=== PATIENT | female | born 1985 | race Caucasian/White ===

== ENCOUNTER 2017-03-25 09:02 | Emergency (ER) | payer SELFPAY ==
[2017-03-25] MEDS ORDERED: OXYCODONE-ACETAMINOPHEN 5-325 MG TABLET PO ONE (09:53)
[2017-03-25] MEDS ORDERED: DOXYCYCLINE HYCLATE 100 MG TABLET PO ONE (09:53)
--- NOTE | 2017-03-25 10:00 | ER Document Report ---
ED Skin Rash/Insect Bite/Abscs - General Chief Complaint: Abscess Stated Complaint: POSSIBLE ABSCESS Time Seen by Provider: 03/25/17 09:46 Mode of Arrival: Ambulatory Information source: Patient Notes: Patient is a 31-year-old female who presents to the ER today with multiple bumps underneath both arms. Patient has never had this happen before. She denies any history of MRSA. She admits to feeling hot and cold but has not taken her temperature. She states that some of them have drained pus. TRAVEL OUTSIDE OF THE [place] IN LAST 30 DAYS: No - Related Data Allergies/Adverse Reactions: Penicillins Allergy (Verified 03/25/17 09:06) Past Medical History - General Information source: Patient - Social History Smoking Status: Current Every Day Smoker Frequency of alcohol use: None Drug Abuse: None Family History: Reviewed & Not Pertinent Patient has suicidal ideation: No Patient has homicidal ideation: No - Past Medical History Cardiac Medical History: Reports: Hx Hypertension Renal/ Medical History: Denies: Hx Peritoneal Dialysis Musculoskeltal Medical History: Reports Hx Arthritis Psychiatric Medical History: Reports: Hx Depression Past Surgical History: Reports: Hx Abdominal Surgery - Exploratory lap, Hx Section - 2, Hx Hysterectomy Review of Systems - Review of Systems Constitutional: See HPI EENT: No symptoms reported Cardiovascular: No symptoms reported Respiratory: No symptoms reported Gastrointestinal: No symptoms reported Genitourinary: No symptoms reported Female Genitourinary: No symptoms reported Musculoskeletal: No symptoms reported Skin: See HPI Hematologic/Lymphatic: No symptoms reported Neurological/Psychological: No symptoms reported Physical Exam - Vital signs Vitals: Temp Pulse Resp BP Pulse Ox 98.4 F 109 H 16 142/89 H 100 03/25/17 09:05 03/25/17 09:05 03/25/17 09:05 03/25/17 09:05 03/25/17 09:05 - Notes Notes: PHYSICAL EXAMINATION: GENERAL: Uncomfortable, but in no acute distress. HEAD: Atraumatic, normocephalic. EYES: Pupils equal round and reactive to light, extraocular movements intact, sclera anicteric, conjunctiva are normal. NECK: Normal range of motion, supple without lymphadenopathy LUNGS: CTAB and equal. No wheezes rales or rhonchi. HEART: Regular rate and rhythm without murmurs EXTREMITIES: Normal range of motion, no pitting edema. No cyanosis. NEUROLOGICAL: Cranial nerves grossly intact. Normal sensory/motor exams. PSYCH: Normal mood, normal affect. SKIN: Warm, Dry, normal turgor, multiple areas of erythema in both axillary areas, patient exquisitely tender to palpation throughout the entire axilla bilaterally, even to skin that is not erythematous, approximately 3-4 small, less than 1 cm, indurated areas without drainage or fluctuance Course - Re-evaluation Re-evalutation: 03/25/17 09:57 Patient is exquisitely tender and will not even let me palpate appropriately on exam. I will start her on doxycycline and give her pain medication and she would like to try this before "cutting them." - Vital Signs Vital signs: Temp Pulse Resp BP Pulse Ox 98.4 F 109 H 16 142/89 H 100 03/25/17 09:05 03/25/17 09:05 03/25/17 09:05 03/25/17 09:05 03/25/17 09:05 Discharge - Discharge Clinical Impression: Abscesses of both axillae Condition: Stable Disposition: HOME, SELF-CARE Additional Instructions: Return immediately for any new or worsening symptoms. Follow up with primary care provider, call tomorrow to make followup appointment. Prescriptions: Doxycycline Hyclate 100 mg PO BID #20 capsule Hydrocodone/Acetaminophen [[place] 5-325 mg Tablet] 1 tab PO Q4 PRN #10 tablet PRN Reason: Forms: Return to Work
[2017-03-25 10:11] VITALS: BP 139/80
== END 2017-03-25 10:11 | disposition home or self-care (01) ==
LOC: ER 09:02
DX: L02.412 Cutaneous abscess of left axilla (principal); L02.411 Cutaneous abscess of right axilla; F17.200 Nicotine dependence, unspecified, uncomplicated
CPT/HCPCS: 99282

== ENCOUNTER 2017-06-10 09:21 | Emergency (ER) | payer SELFPAY ==
--- NOTE | 2017-06-10 10:16 | ER Document Report ---
ED GI/ - General Mode of Arrival: Ambulatory Information source: Patient TRAVEL OUTSIDE OF THE [place] IN LAST 30 DAYS: No - HPI Patient complains to provider of: Abdominal pain Onset: Other - 3 weeks ago. Progressivley worse over the last 3 days. Location: Epigastric, RUQ Associated symptoms: Chills Exacerbated by: Supine <LAYO ZAMAN - Last Filed: 06/10/17 12:49> <EMELI BROWN - Last Filed: 06/10/17 19:29> - General Chief Complaint: Abdominal Pain Stated Complaint: VOMITING Notes: Patient is a 31 year old female presenting to the emergency department complaining of severe epigastric and RUQ abdominal pain onset 3 weeks ago. Patient states that the pain has progressively gotten worse over the last 3 days. Patient states that the pain is a sharp pain and "unbearable". Patient states the pain is exacerbated when supine. Patients associated symptoms include diaphoresis, vomiting which is described as "chewed up coffee grounds", fever, chills,cough and decreased fluid and food intake. Patient states that she was diagnosed with GERD 3 years ago in which she normally takes Prilosec. She states that Prilosec normally helps with her GERD symptoms. (LAYO ZAMAN) - Related Data Allergies/Adverse Reactions: Penicillins Allergy (Verified 06/10/17 09:23) Home Medications: Current Home Medications Citalopram Hydrobromide [Celexa 40 mg Tablet] 1 tab PO DAILY 06/10/17 [History] Gabapentin 300 mg PO TID 06/10/17 [History] Omeprazole Magnesium [Prilosec Otc] 20 mg PO DAILY 06/10/17 [History] Past Medical History - Social History Smoking Status: Current Every Day Smoker Chew tobacco use (# tins/day): No Frequency of alcohol use: Occasional Drug Abuse: None Family History: Reviewed & Not Pertinent Patient has suicidal ideation: No Patient has homicidal ideation: No - Past Medical History Cardiac Medical History: Reports: Hx Hypertension Musculoskeltal Medical History: Reports Hx Arthritis Psychiatric Medical History: Reports: Hx Depression Past Surgical History: Reports: Hx Abdominal Surgery - Exploratory lap, Hx Section - 2, Hx Hysterectomy <LAYO ZAMAN - Last Filed: 06/10/17 12:49> Review of Systems - Review of Systems Constitutional: See HPI, Chills, Diaphoresis, Fever EENT: No symptoms reported Cardiovascular: No symptoms reported Respiratory: No symptoms reported Gastrointestinal: See HPI, Abdominal pain, Nausea, Vomiting, Poor appetite, Poor fluid intake Genitourinary: No symptoms reported Female Genitourinary: No symptoms reported Musculoskeletal: No symptoms reported Skin: No symptoms reported Hematologic/Lymphatic: No symptoms reported Neurological/Psychological: No symptoms reported -: Yes All other systems reviewed and negative <JUNIELAYO - Last Filed: 06/10/17 12:49> Physical Exam <JUNIE,TAMNOREEN - Last Filed: 06/10/17 12:49> <FÉLIXERNESTOEMELI - Last Filed: 06/10/17 19:29> - Vital signs Vitals: Temp Pulse Resp BP Pulse Ox 98.2 F 111 H 20 145/104 H 100 06/10/17 09:23 06/10/17 09:23 06/10/17 09:23 06/10/17 09:23 06/10/17 09:23 - Notes Notes: GENERAL: Alert, interacts well. Appears uncomfortable. HEAD: Normocephalic, atraumatic. EYES: Pupils equal, round, and reactive to light. Extraocular movements intact. ENT: Oral mucosa moist, tongue midline. NECK: Full range of motion. Supple. Trachea midline. LUNGS: Clear to auscultation bilaterally, no wheezes, rales, or rhonchi. No respiratory distress. HEART: Regular rate and rhythm. No murmurs, gallops, or rubs. ABDOMEN: LUQ and epigastrium tender to palpation. Non-distended. Bowel sounds present in all 4 quadrants. EXTREMITIES: Moves all 4 extremities spontaneously. No edema, radial and dorsalis pedis pulses 2/4 bilaterally. No cyanosis. NEUROLOGICAL: Alert and oriented x3. Normal speech. Biceps and patellar DTRs 2 + bilaterally. PSYCH: Normal affect, normal mood. SKIN: Warm, dry, normal turgor. No rashes or lesions noted. RECTAL: No external hemorrhoids. Brown stool, no blood. (JUNIELAYO) Course - Laboratory Result Diagrams: 06/10/17 10:25 06/10/17 10:25 <JUNIESHERIFNOREEN - Last Filed: 06/10/17 12:49> - Laboratory Result Diagrams: 06/10/17 10:25 06/10/17 10:25 <EMELI BROWN - Last Filed: 06/10/17 19:29> - Re-evaluation Re-evalutation: 06/10/17 14:49 CBC unremarkable, CMP grossly unremarkable, lipase normal, abdominal ultrasound does not show any signs of biliary pathology, discussed with patient thi could represent continuing GERD or it could be a dyskinetic gallbladder and she will require a HIDA scan as an outpatient. Patient has been referred to surgery for further follow-up, started on Carafate in case this is GERD and discharged to home. Chest x-ray unremarkable. (EMELI BROWN) - Vital Signs Vital signs: Temp Pulse Resp BP Pulse Ox 98.2 F 81 16 122/79 100 06/10/17 09:23 06/10/17 15:38 06/10/17 15:38 06/10/17 15:38 06/10/17 15:38 - Laboratory Laboratory results interpreted by me: 06/10/17 06/10/17 10:25 10:25 Seg Neuts % (Manual) 24 L Lymphocytes % (Manual) 62 H Abs Neuts (Manual) 1.3 L Sodium 146.5 H BUN 6 L Discharge <LAYO ZAMAN - Last Filed: 06/10/17 12:49> <EMELI BROWN - Last Filed: 06/10/17 19:29> - Discharge Clinical Impression: Right upper quadrant abdominal pain of unknown etiology, Essential (primary) hypertension, Tobacco abuse, Tobacco abuse counseling GERD (gastroesophageal reflux disease) Qualifiers: Esophagitis presence: esophagitis presence not specified Qualified Code(s): K21.9 - Gastro-esophageal reflux disease without esophagitis Vomiting Qualifiers: Vomiting type: unspecified Vomiting Intractability: intractable Nausea presence : with nausea Qualified Code(s): R11.2 - Nausea with vomiting, unspecified Condition: Stable Disposition: HOME, SELF-CARE Additional Instructions: Drink plenty of fluids, return to a clear liquid diet and avoid fatty or greasy foods. Today we did not find any problem with your gallbladder, but you could have a gallbladder that is not squeezing well and you would need a HIDA scan. Please follow-up with either your primary care physician or a surgeon. They can order this. I have prescribed Zofran for nausea, Carafate to help soothe her stomach if some of this is heartburn, Zantac to take instead of the Prilosec to see if this works better for you. Please avoid alcohol, smoking, ibuprofen and other things known to trigger heartburn. Please return for vomiting blood, fevers, uncontrollable pain or any new or concerning symptoms. Prescriptions: Ondansetron [Zofran Odt 4 mg Tablet] 1 - 2 tab PO Q4H PRN #15 tab.rapdis PRN Reason: For Nausea/Vomiting Ranitidine HCl [Zantac 75 mg Tablet] 75 mg PO BID #30 tablet Sucralfate [Carafate 1 gm Tablet] 1 gm PO ACHS #40 tablet Forms: Smoking Cessation Education, Return to Work Scribe Attestation: 06/10/17 19:29 I personally performed the services described in the documentation, reviewed and edited the documentation which was dictated to the scribe in my presence, and it accurately records my words and actions. (EMELI BROWN) Scribe Documentation - Scribe Written by Hunter:: Hunter Garcia, 06/10/2017 12:52 acting as scribe for :: Mauricio <LAYO ZAMAN - Last Filed: 06/10/17 12:49>
[2017-06-10] MEDS ORDERED: NORMAL SALINE 1000 ML 1,000 ML IV ONE (10:38)
[2017-06-10] MEDS ORDERED: HYDROMORPHONE HCL INJ/PF 2 MG/ML AMPULE IV ONE (10:38)
[2017-06-10] MEDS ORDERED: ONDANSETRON HCL INJ/PF 4 MG/2 ML SDV IV ONE (10:38)
[2017-06-10 10:44] LABS: HEMATOCRIT 39.7 % (36.0-47.0); HEMOGLOBIN 13.6 g/dL (12.0-15.5); HGB HCT DIFFERENCE 1.1; MEAN CORPUSCULAR HEMOGLOBIN 31.8 pg (27.0-33.4); MEAN CORPUSCULAR HGB CONC 34.2 g/dL (32.0-36.0); MEAN CORPUSCULAR VOLUME 93 fl (80-97); RED BLOOD COUNT 4.27 10^6/uL (3.72-5.28); RED CELL DISTRIBUTION WIDTH 12.7 % (11.5-14.0); WHITE BLOOD COUNT 5.4 10^3/uL (4.0-10.5)
[2017-06-10 11:05] LABS: ALANINE AMINOTRANSFERASE 26 U/L (9-52); ALBUMIN 4.5 g/dL (3.5-5.0); ALKALINE PHOSPHATASE 82 U/L (38-126); ANION GAP 13 (5-19); ASPARTATE AMINO TRANSFERASE 25 U/L (14-36); BILIRUBIN,DIRECT 0.3 mg/dL (0.0-0.4); BILIRUBIN,TOTAL 0.4 mg/dL (0.2-1.3); BLOOD UREA NITROGEN 6 mg/dL (7-20); CALCIUM 9.8 mg/dL (8.4-10.2); CARBON DIOXIDE 28 mmol/L (22-30); CHLORIDE 106 mmol/L (98-107); CREATININE RESULT 0.88 mg/dL (0.52-1.25); GLUCOSE 88 mg/dL (75-110); LIPASE 80.3 U/L (23-300); POTASSIUM 4.2 mmol/L (3.6-5.0); SODIUM 146.5 mmol/L (137-145); TOTAL PROTEIN 7.8 g/dL (6.3-8.2)
[2017-06-10 11:10] LABS: BASOPHILS % (MANUAL) 0 % (0-2); EOSINOPHILS % (MANUAL) 1 % (0-6); LYMPHOCYTES % (MANUAL) 62 % (13-45); RBC MORPHOLOGY COMMENT NORMO-CYTIC/CHROMIC; TOTAL CELLS COUNTED 100; TOXIC GRANULATION SLIGHT; TOXIC VACUOLATION PRESENT
--- NOTE | 2017-06-10 11:17 | RADIOLOGY REPORT (SQ) ---
EXAM DESCRIPTION: CHEST PA/LAT COMPLETED DATE/TIME: 06/10/2017 11:06 am REASON FOR STUDY: chest pain, vomiting COMPARISON: 09/27/2008 EXAM PARAMETERS: NUMBER OF VIEWS: two views TECHNIQUE: Digital Frontal and Lateral radiographic views of the chest acquired. RADIATION DOSE: NA LIMITATIONS: none FINDINGS: LUNGS AND PLEURA: No opacities, masses or pneumothorax. No pleural effusion. MEDIASTINUM AND HILAR STRUCTURES: No masses or contour abnormalities. HEART AND VASCULAR STRUCTURES: Heart normal size. No evidence for failure. BONES: No acute findings. HARDWARE: None in the chest. OTHER: No other significant finding. IMPRESSION: NO SIGNIFICANT RADIOGRAPHIC FINDING IN THE CHEST. TECHNICAL DOCUMENTATION: JOB ID: [id number] [employer]- All Rights Reserved
--- NOTE | 2017-06-10 13:58 | RADIOLOGY REPORT (SQ) ---
EXAM DESCRIPTION: U/S ABDOMEN LIMITED W/O DOP COMPLETED DATE/TIME: 06/10/2017 1:46 pm REASON FOR STUDY: RUQ abd pain, vomiting COMPARISON: None. TECHNIQUE: Dynamic and static grayscale images acquired of the right upper quadrant and recorded on PACS. Additional selected color Doppler and spectral images recorded. LIMITATIONS: Study limited due to acoustical interference from fat or from air in the bowel. FINDINGS: PANCREAS: Visualized pancreas and duct normal. Parts of pancreas poorly seen secondary to acoustical interference from fat or from air in the bowel. LIVER: No masses. Echotexture normal. LIVER VASCULATURE: Normal directional flow of the main portal vein and hepatic veins. GALLBLADDER: No stones. Normal wall thickness. No pericholecystic fluid. ULTRASOUND-DETECTED NIEVES'S SIGN: Negative. INTRAHEPATIC DUCTS AND COMMON DUCT: CBD and intrahepatic ducts normal caliber. No filling defects. INFERIOR VENA CAVA: Normal flow. AORTA: Proximal aorta normal caliber. In the distal ureter obscured by bowel gas. RIGHT KIDNEY: Normal size. Normal echogenicity. No solid or suspicious masses. No hydronephrosis. No calcifications. PERITONEAL CAVITY AND RIGHT PLEURAL SPACE: No ascites or effusions. OTHER: No other significant finding. IMPRESSION: UNREMARKABLE RIGHT UPPER QUADRANT ULTRASOUND. PANCREAS AND DISTAL ABDOMINAL AORTA PARTI ALLY OBSCURED BY GAS. TECHNICAL DOCUMENTATION: JOB ID: [id number] [employer]- All Rights Reserved
[2017-06-10] MEDS ORDERED: MAG HYDROX/AL HYDROX/SIMETH SUSP 30 ML UDCUP PO ONE (14:14)
[2017-06-10] MEDS ORDERED: LIDOCAINE 2% VISCOUS SOLN 20 ML UDCUP PO ONE (14:14)
[2017-06-10] MEDS ORDERED: METOCLOPRAMIDE HCL ORAL SOLN 10 MG/10 ML UDCUP PO ONE (14:14)
[2017-06-10 15:40] VITALS: BP 122/79
--- NOTE | 2017-06-10 23:54 | EKG REPORT ---
SEVERITY:- NORMAL ECG - SINUS RHYTHM : Confirmed by: Zabrina Juarez 10-Jun-2017 23:54:17
== END 2017-06-10 15:38 | disposition home or self-care (01) ==
LOC: ER 09:21
DX: K21.9 Gastro-esophageal reflux disease without esophagitis (principal); I10 Essential (primary) hypertension; R11.2 Nausea with vomiting, unspecified; R10.11 Right upper quadrant pain; R10.13 Epigastric pain; F17.200 Nicotine dependence, unspecified, uncomplicated
CPT/HCPCS: 93005; 99284; 96361; 96374; 96375; 36415; 83690; 85025; 81025; 80053; 71020; 76705; 93010; J3490; J1170; J2405; J7030

== ENCOUNTER 2018-04-15 19:00 | Emergency (ER) | payer MEDICAID ==
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
[2018-04-15 20:27] VITALS: BP 105/82
== END 2018-04-15 20:15 | disposition home or self-care (01) ==
LOC: ER 19:00
DX: Z76.0 Encounter for issue of repeat prescription (principal); F11.20 Opioid dependence, uncomplicated; I10 Essential (primary) hypertension
CPT/HCPCS: 99281

== ENCOUNTER 2018-07-06 05:09 | Emergency (ER) | payer MEDICAID ==
[2018-07-06] MEDS ORDERED: METOCLOPRAMIDE HCL INJ/PF 10 MG/2 ML SDV IV ONE (05:18)
[2018-07-06] MEDS ORDERED: DIPHENHYDRAMINE HCL 50 MG/ML VIAL IV ONE (05:18)
[2018-07-06] MEDS ORDERED: NORMAL SALINE 1000 ML 1,000 ML IV ONE (05:18)
--- NOTE | 2018-07-06 05:22 | ER Document Report ---
ED Medical Screen (RME) - General Stated Complaint: HEADACHE Time Seen by Provider: 07/06/18 05:17 Mode of Arrival: Medic Information source: Patient, Emergency Med Personnel Notes: 32-year-old female with hypertension, depression, history of prescription drug abuse currently on Suboxone presents with complaint of sudden onset of headache that occurred just prior to arrival. Patient states that she took her Suboxone for her knee pain and awoke an hour later with severe head pain. I have greeted and performed a rapid initial assessment of this patient. A comprehensive ED assessment and evaluation of the patient, analysis of test results and completion of medical decision making process we will be contacted by additional ED providers. PHYSICAL EXAMINATION: Vital signs reviewed GENERAL: Crying, holding her head LUNGS: No respiratory distress Musculoskeletal: Normal range of motion NEUROLOGICAL: Normal speech, alert and oriented PSYCH: Tearful difficult to direct SKIN: Warm, Dry, normal turgor, no rashes or lesions noted. TRAVEL OUTSIDE OF THE [place] IN LAST 30 DAYS: No - HPI Onset: Just prior to arrival Quality of pain: Stabbing Severity: Moderate Associated Symptoms: Headache Exacerbated by: Denies Relieved by: Denies Similar symptoms previously: Yes Recently seen / treated by doctor: No - Related Data Smoking: Cigarettes Frequency of alcohol use: None Drug Abuse: Prescription drugs Allergies/Adverse Reactions: Penicillins Allergy (Verified 04/15/18 19:00) Past Medical History - Past Medical History Cardiac Medical History: Reports: Hx Hypertension Renal/ Medical History: Denies: Hx Peritoneal Dialysis Musculoskeltal Medical History: Reports Hx Arthritis Psychiatric Medical History: Reports: Hx Depression Past Surgical History: Reports: Hx Abdominal Surgery - Exploratory lap, Hx Section - 2, Hx Hysterectomy Doctor's Discharge - Discharge Referrals: RAKESH BRADFORD MD [Primary Care Provider] - Follow up as needed
--- NOTE | 2018-07-06 07:00 | RADIOLOGY REPORT (SQ) ---
EXAM DESCRIPTION: CT HEAD WITHOUT IV CONTRAST COMPLETED DATE/TME: 07/06/2018 06:30 CLINICAL HISTORY: 32 years, Female, headache COMPARISON: Prior CT 01/30/2016 TECHNIQUE: 197 Images stored on PACS. All CT scanners at this facility use dose modulation, iterative reconstruction, and/or weight based dosing when appropriate to reduce radiation dose to as low as reasonably achievable (ALARA). [facility]: Dose Right [facility]: CareDose [facility]: Dose Right [facility]: Teradose 4D [facility]: [employer] LIMITATIONS: None. FINDINGS: The globes are intact. Paranasal sinuses and mastoid air cells are well aerated. No displaced or depressed skull fracture. Pleural-based calcifications. Negative for intra or extra-axial hemorrhage. CT is limited for evaluation of acute infarct. No CT evidence for large or territorial acute infarct. No mass or midline shift. Freitas-white matter differentiation is preserved. IMPRESSION: Negative for acute intracranial abnormality. TECHNICAL DOCUMENTATION: Quality ID # [id number]: Final reports with documentation of one or more dose reduction techniques (e.g., Automated exposure control, adjustment of the mA and/or kV according to patient size, use of iterative reconstruction technique) copyright 2010 [employer]- All Rights Reserved
[2018-07-06] MEDS ORDERED: DEXAMETHASONE SOD PHOSPHATE INJ 4 MG/1 ML VIAL IV ONE (07:29)
--- NOTE | 2018-07-06 07:30 | ER Document Report ---
ED General - General Chief Complaint: Headache <24 hrs old Stated Complaint: HEADACHE Time Seen by Provider: 07/06/18 05:17 Mode of Arrival: Medic Information source: Patient, Emergency Med Personnel TRAVEL OUTSIDE OF THE [place] IN LAST 30 DAYS: No - HPI Patient complains to provider of: Headache Onset: Other - 32-year-old female with a headache which started this morning upon waking up. She notes that she had an intense frontal headache at that time which prompted her to call for emergency medical services, she has had a headache like this in the past for which she was evaluated and no obvious cause was identified, she is has suffered migraines in the past without any obvious causes identified. She denies any recent illnesses fevers chills trauma to the head or other symptoms, she denies any focal numbness or weakness, she does have some photophobia associated with this. She denies any neck stiffness. 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 This does not feel exactly like her stereotypical headaches. - Related Data Allergies/Adverse Reactions: Penicillins Allergy (Verified 07/06/18 05:22) Past Medical History - General Information source: Patient, Emergency Med Personnel - Social History Smoking Status: Current Every Day Smoker Chew tobacco use (# tins/day): No Frequency of alcohol use: None Drug Abuse: Prescription drugs Family History: Reviewed & Not Pertinent Patient has suicidal ideation: No Patient has homicidal ideation: No - Past Medical History Cardiac Medical History: Reports: Hx Hypertension Renal/ Medical History: Denies: Hx Peritoneal Dialysis Musculoskeletal Medical History: Reports Hx Arthritis Psychiatric Medical History: Reports: Hx Depression Past Surgical History: Reports: Hx Abdominal Surgery - Exploratory lap, Hx Section - 2, Hx Hysterectomy Review of Systems - Review of Systems -: Yes All other systems reviewed and negative Physical Exam - Vital signs Vitals: Temp Pulse Resp BP Pulse Ox 97.8 F 94 20 116/90 H 98 07/06/18 05:22 07/06/18 05:22 07/06/18 05:22 07/06/18 05:22 07/06/18 05:22 - General General appearance: Anxious In distress: Mild - HEENT Head: Normocephalic, Atraumatic Eyes: Normal Pupils: PERRL - Respiratory Respiratory status: No respiratory distress Chest status: Nontender Breath sounds: Normal Chest palpation: Normal - Cardiovascular Rhythm: Regular Heart sounds: Normal auscultation Murmur: No - Abdominal Inspection: Normal Distension: No distension Bowel sounds: Normal Tenderness: Nontender Organomegaly: No organomegaly - Back Back: Normal, Nontender - Extremities General upper extremity: Normal inspection, Nontender, Normal color, Normal ROM , Normal temperature General lower extremity: Normal inspection, Nontender, Normal color, Normal ROM , Normal temperature, Normal weight bearing. No: Jinny's sign - Neurological Neuro grossly intact: Yes Cognition: Normal Orientation: AAOx4 Perry Coma Scale Eye Opening: Spontaneous Swathi Coma Scale Verbal: Oriented Swathi Coma Scale Motor: Obeys Commands Perry Coma Scale Total: 15 Speech: Normal Motor strength normal: LUE, RUE, LLE, RLE Sensory: Normal - Psychological Associated symptoms: Normal affect, Normal mood Course - Re-evaluation Re-evalutation: 07/06/18 11:40 32-year-old female with a marked frontal headache. She is neurologically intact but does have symptoms of a migraine. Because her headache is so intense and this is slightly abnormal for her will obtain CT imaging of the head as it did start within the last [address] of the head within the first 2 hours clinically correlates with a greater than 99% sensitivity for subarachnoid hemorrhage. CT of the head is negative. Administered migraine cocktail. Migraine cocktail did improve patient's symptoms while in emergency department, she remained well-appearing neurologically intact throughout time the emergency department she was able to rest. She was given a dose of steroids to help prophylax against future migraine. Current plan will be for this patient undergo discharge with return precautions. - Vital Signs Vital signs: Temp Pulse Resp BP Pulse Ox 98.4 F 68 20 112/67 92 07/06/18 08:06 07/06/18 08:06 07/06/18 05:22 07/06/18 08:06 07/06/18 08:06 Discharge - Discharge Clinical Impression: Headache Qualifiers: Headache type: unspecified Headache chronicity pattern: unspecified pattern Intractability: not intractable Qualified Code(s): R51 - Headache Migraine Qualifiers: Migraine type: unspecified Status migrainosus presence: without status migrainosus Intractability: not intractable Qualified Code(s): G43.909 - Migraine, unspecified, not intractable, without status migrainosus Condition: Good Disposition: HOME, SELF-CARE Instructions: Migraine Headache ([facility]) Additional Instructions: You were seen today in the emergency department for your headache. He had evaluation including a physical exam as well as a CAT scan of your head. I believe that her headache is related to a migraine. You have had this headache in the past. He been given a prescription for a medication to help with migraine. Use the medication only as needed. Return for worsening headaches, fevers, chills any numbness or weakness. Otherwise schedule point with your primary physician this week to reevaluate you. Referrals: RAKESH BRADFORD MD [Primary Care Provider] - Follow up as needed
[2018-07-06 08:12] VITALS: BP 112/67
== END 2018-07-06 08:12 | disposition home or self-care (01) ==
LOC: EEVIPCON 05:09 → ER 05:09
DX: G43.909 Migraine, unspecified, not intractable, without status migrainosus (principal); F19.10 Other psychoactive substance abuse, uncomplicated; I10 Essential (primary) hypertension; F17.200 Nicotine dependence, unspecified, uncomplicated; Z79.891 Long term (current) use of opiate analgesic; Z79.899 Other long term (current) drug therapy; Z88.0 Allergy status to penicillin
CPT/HCPCS: 99284; 96361; 96374; 96375; 70450; J1100; J1200; J2765; J7030